=== PATIENT | female | born 1995 | race Caucasian/White ===

== ENCOUNTER 2017-10-14 13:27 | Emergency (ER) | payer OTHER ==
[~2017-10-14] VITALS: Ht 160 cm; Wt 62.6 kg
[2017-10-14 14:10] VITALS: BP 120/88; Ht 160 cm; Wt 62.6 kg
== END 2017-10-14 16:29 | disposition home or self-care (01) ==
LOC: ED 13:27
DX: S61.432A Puncture wound without foreign body of left hand, initial encounter (principal); X58.XXXA Exposure to other specified factors, initial encounter; Y93.89 Activity, other specified; Y92.89 Other specified places as the place of occurrence of the external cause; Y99.8 Other external cause status
CPT/HCPCS: Q0092